=== PATIENT | female | born 1975 | race Hispanic/Latino ===

== ENCOUNTER 2016-04-27 11:07 | Emergency (ER) | payer OTHER ==
[~2016-04-27] VITALS: Ht 162.6 cm; Wt 61.4 kg
[~2016-04-27 11:07] MED LIST: CYCL10TA9 PO; IBUP-1827 PO
[2016-04-27 11:14] VITALS: BP 133/85; PULSE 91; RESP 22; O2SAT 99
--- NOTE | 2016-04-27 11:15 | ED.REPORT ---
HPI-Trauma Minor / Fall Date of Service Apr 27, 2016 ED Provider: Brenden Chen MD This is a 40 year old female brought to the ED by EMS after a GLF that occurred just prior to arrival. Pt was at work when she fell back onto hear head resulting in change LOC for a few seconds. Reports mild diffuse headache, low back pain, neck pain, and R foot pain. Denies nausea, vomiting, abdominal pain, vision changes, or dizziness. Nursing Notes Stated Complaint: GLF Chief Complaint: Multiple Trauma/Fall Nursing Notes Reviewed: Yes Allergies: Coded Allergies: Penicillins (Verified Allergy, Severe, HIVES, 05/22/15) Uncoded Allergies: Penicillin (Allergy, Severe, HIVES, 10/09/04) Scheduled PRN Cyclobenzaprine (Cyclobenzaprine) 10 Mg Tablet 10 MG PO TID PRN PRN Spasm Cyclobenzaprine (Cyclobenzaprine) 5 Mg Tablet 5 MG PO HS PRN PRN Spasm Ibuprofen (Ibuprofen) 600 Mg Tablet 600 MG PO QID PRN PRN For Pain Ibuprofen (Ibuprofen) 800 Mg Tablet 800 MG PO TID PRN PRN For Pain General Time Seen by MD: 11:10 Chief Complaint Fall Hx Obtained From: Patient Arrived By: Walk-in Onset Occurred: Just prior to arrival Symptom Duration: Since onset Severity: Current: Mild Pertinent Negative: Pt denies other symptoms Recent Healthcare: No recent doctor visit, No recent hospitalization Similar Sx Previous: No Risk Factors Head CT Imaging Inclusion Criteria: >/= 16 yo age GCS of 14 OR 15 Patient Presents WITH: Loss of Conciousness Non Contrast CT Indicated For: Headache RF Statements: Risk factors reviewed Past Medical History Past Medical History None Past Surgical History None Family History Grandmother from hemorrhagic stroke. Father had HTN. Smoking History Never Smoker Social History Pt works at [employer]. Alcohol Use: Denies alcohol use Ambulatory Status Independent Review of Systems Constitutional: Denies: Chills, Fever Respiratory: Denies: Non-productive cough, Shortness of breath Musculoskeletal: Reports: Back pain, Extremity pain, Neck pain Neurologic: Reports: Change LOC, Headache, Denies: Confusion, Dizziness, Lightheaded, Numbness Complete sys rev & neg: except as marked. GI: Denies: Abdominal pain, Nausea, Vomiting Physical Exam Initial Vital Signs Vital Signs (First) Date Time Temp Pulse Resp B/P Pulse Ox O2 Delivery O2 Flow Rate FiO2 1/11/17 11:14 36.1 91 22 133/85 99 Room Air - Initial VS: Reviewed Head / Eyes: Atraumatic, Normocephalic, PERRL ENT: Mucous membranes moist, Conjunctiva normal, No scleral icterus Respiratory: Breath sounds normal, Clear to auscultation, No respiratory distress Cardiovascular: Regular rate & rhythm, Heart sounds normal, Intact distal pulses Abdomen / GI: Soft, Non-tender, No guarding, No rebound, No distention Extremities: Vascular intact, Neuro intact, No swelling, No tenderness Skin: Warm, Dry, No cyanosis Neurologic: Alert, Oriented, Nonfocal Psychiatric: Mood/affect normal, Behavior normal, Normal thought content General/Constitutional: Awake, Alert Neck: No adenopathy Diffuse tenderness over c-spine Back: No paraspinal tenderness Diffuse tenderness of lumbar spine, no step-offs Ankle / Foot: Neurologic intact, Vascular intact Tenderness over superficial aspect of L right foot Interpretation & Diagnostics R FOOT X-RAY IMPRESSION: No fracture. No osseous lesion. If symptoms and/or clinical suspicion for pathology persists, further assessment with repeat radiographs or advanced imaging (e.g. CT, MRI or bone scan) may be helpful for further assessment. Dictated by: Martha Kilpatrick MD, PhD on 04/27/2016 at 11:54 Approved by: Martha Kilpatrick MD, PhD on 04/27/2016 at 11:[address] IMPRESSION: No acute intracranial abnormality. Dictated by: Ike Durant M.D. on 04/27/2016 at 13:19 Approved by: Ike Durant M.D. on 04/27/2016 at 13:[address] IMPRESSION: No fracture. Dictated by: Ike Durant M.D. on 04/27/2016 at 13:22 Approved by: Ike Durant M.D. on 04/27/2016 at 13:[address] IMPRESSION: No acute fracture. 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 Dictated by: Ike Durant M.D. on 04/27/2016 at 13:25 Approved by: Ike [facility] Results Interpretation Test 04/27/16 11:15 Hold Purple Top Tube Received (Received) Hold Blue Top Tube Received (Received) Hold Red Top Tube Received (Received) Hold Rogers Top Tube Received (Received) Re-Eval/Medical Decision Med Decision/Clinical Course 40-year-old female presenting status post ground level fall onto the back of her head earlier today possible loss of consciousness. Complaining of headache, neck pain, low back pain. No head trauma visualized. Neurological exam is normal. No neurological deficits. CT head, C-spine, L-spine normal. Patient discharged with ibuprofen and muscle relaxer to use as needed. Follow-up primary doctor 1-2 days as needed. Re-Evaluation/Progress : Time of Eval: 13:34 Re-Evaluation/Progress Note: Re-checked, discussed imaging results, plan for d/c, all questions addressed. Counseled Regarding: Diagnosis, Lab results, Need for follow-up, When/why to return to ED Discharge & Departure Impression: Primary Impression: Fall from ground level Additional Impression: Trauma Disposition: Home Discharge Condition All VS Reviewed: Yes Condition: Stable Additional Instructions: Your x-ray and CT scans were normal today. Take ibuprofen as needed for pain relief. Follow up with your primary care provider. Return to the emergency department if you develop any new or worsening symptoms such as worsening headache, nausea, vomiting, changes in vision, dizziness, or lightheadedness. [employer] TRANSLATE Mcbride radiografa y tomografa computarizada delmy normales hoy en da. [place] ibuprofeno segn sea necesario para aliviar el dolor. Kady un seguimiento con mcbride proveedor de atencin primaria. Vuelva al departamento de urgencias si presenta sntomas nuevos o que empeoran, onesimo dolor de yosi, nuseas, vmitos , cambios en la visin, mareos o desvanecimientos. Referrals: Jennifer Bruno MD (PCP) Scribe Attestation Portions of this note were transcribed by Noel Jhaveri. I, Dr. Chen personally performed the history, physical exam and medical decision-making; I reviewed and confirmed the accuracy of the information in the transcribed note. Signed by: Noel Jhaveri. 04/27/2015, 1117. Brenden Chen MD Apr 27, 2016 11:15 NOEL JHAVERI Apr 27, 2016 11:26
[2016-04-27] MEDS ORDERED: Ketorolac 30 mg/mL 2 mL Inj IM ONE (11:25)
--- NOTE | 2016-04-27 11:56 | DRSVH ---
PROCEDURE: X-RAY RIGHT FOOT COMPLETE, MINIMUM THREE VIEWS ([id number]) INDICATIONS: trauma TECHNIQUE: 3 views of the foot were acquired. COMPARISON: None. FINDINGS: Bones: No fractures or dislocations. No suspicious bony lesions. Soft tissues: No tibiotalar joint effusion. Achilles tendon appears normal. IMPRESSION: No fracture. No osseous lesion. If symptoms and/or clinical suspicion for pathology pers ists, further assessment with repeat radiographs or advanced imaging (e.g. CT, MRI or bone scan) may be helpful for further assessment. Dictated by: Martha Kilpatrick MD, PhD on 04/27/2016 at 11:54 Approved by: Martha Kilpatrick MD, PhD on 04/27/2016 at 11:54
--- NOTE | 2016-04-27 13:21 | DRSVH ---
PROCEDURE: CT BRAIN WITHOUT CONTRAST ([id number]) INDICATIONS: trauma TECHNIQUE: Noncontrast 4.5 mm thick angled axial sections acquired from the foramen magnum to the vertex, with c oronal reformats. COMPARISON: Merged With [facility], CT, CT BRAIN WO CON, 05/22/2015, 11:43. FINDINGS: Image quality: Excellent. CSF spaces: Basal cisterns are patent. No extra-axial fluid collections. Ventricles are normal in size and shape. Brain: No midline shift. No intracranial masses or hemorrhage. Haynes-white matter interface is norm al. Skull and face: Calvarium and visualized facial bones are intact, without suspicious lesions. Sinuses: Visualized sinuses and mastoids are clear. IMPRESSION: No acute intracranial abnormality. Dictated by: Ike Durant M.D. on 04/27/2016 at 13:19 Approved by: Ike Durant M.D. on 04/27/2016 at 13:19
--- NOTE | 2016-04-27 13:24 | DRSVH ---
PROCEDURE: CT CERVICAL SPINE WITHOUT CONTRAST ([id number]) INDICATIONS: trauma TECHNIQUE: Noncontrast 3 mm thick sections acquired from the skull base to the T4 level. Sagittal and coronal r eformats were then constructed. For radiation dose reduction, the following was used: automated exp osure control, adjustment of mA and/or kV according to patient size. COMPARISON: None. FINDINGS: Image quality: Excellent. Bones: No fractures or dislocations. Visualized superior ribs are intact. Soft tissues: Prevertebral soft tissues are normal in thickness. No paravertebral hematomas. No ap ical pneumothoraces. IMPRESSION: No fracture. Dictated by: Ike Durant M.D. on 04/27/2016 at 13:22 Approved by: Ike Durant M.D. on 04/27/2016 at 13:22
--- NOTE | 2016-04-27 13:27 | DRSVH ---
PROCEDURE: CT LUMBAR SPINE WITHOUT CONTRAST ([id number]) INDICATIONS: trauma TECHNIQUE: Noncontrast 3 mm thick sections acquired from the T12 level to the sacrum. Sagittal and coronal refo rmats were constructed. For radiation dose reduction, the following was used: automated exposure co ntrol. COMPARISON: None. FINDINGS: Image quality: Excellent. Bones: There is normal bony alignment. 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 This may also represent a congenital rudimentary rib. No acute vertebral body compression fractures. No suspicious lytic or blastic bony lesions. Central spinal caliber is of normal overall caliber. No pars defects. Soft tissues: No retroperitoneal masses or hematomas. Visualized aorta is normal in caliber. IMPRESSION: No acute fracture. 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 Dictated by: Ike Durant M.D. on 04/27/2016 at 13:25 Approved by: Ike Durant M.D. on 04/27/2016 at 13:25
[2016-04-27] MEDS ORDERED: IBUP800T28 PO (13:38)
[2016-04-27] MEDS ORDERED: CYCL5TAB PO (13:38)
[2016-04-27 14:05] VITALS: BP 117/76; PULSE 73; RESP 16; O2SAT 99
== END 2016-04-27 14:07 | disposition home or self-care (01) ==
LOC: SED 11:07
DX: S06.9X9A Unspecified intracranial injury with loss of consciousness of unspecified duration, initial encounter (principal); W18.30XA Fall on same level, unspecified, initial encounter; Y92.511 Restaurant or cafe as the place of occurrence of the external cause; Y93.89 Activity, other specified; Y99.0 Civilian activity done for income or pay; M54.2 Cervicalgia; M54.5 Low back pain; Z88.0 Allergy status to penicillin